=== PATIENT | female | born 1995 | race Caucasian/White ===

== ENCOUNTER 2017-03-23 09:18 | Emergency (ER) | payer BC ==
[2017-03-23 10:10] VITALS: BP 118/86
[2017-03-23] MEDS ORDERED: Ondansetron ODT TAB* 4 MG PO ONE (10:49)
--- NOTE | 2017-03-23 11:02 | UC ---
Leonard Chavez Benjamin, scribed for Lamont Mota MD on 03/23/17 at 1049 . Abdominal Pain Female HPI - HPI Summary HPI Summary: 21yo female c/o vomiting and diarrhea since this morning. Pt felt SOB and lightheaded en route to the UC. Pt also reports stabbing upper abdominal pain since yesterday night. Pt has had about 10 vomiting episodes with green vomit, 6 -8 episodes of dark brown diarrhea, but no black stool. No significant PMHx. Gall bladder still intact. Pt reports that she is currently on her menstrual period. Pain intensity of 3-4 out of 10, but initial intensity was 7 out of 10. - History of Current Complaint Chief Complaint: UCAbdominalPain Stated Complaint: V/D, SOB,LIGHTHEADED Hx Obtained From: Patient Hx Last Menstrual Period: 03/22/17 ?: No Onset/Duration: Sudden Onset, Lasting Days - 1 day, Still Present Severity Initially: Moderate - 7 Severity Currently: Mild - 3 Pain Intensity: 3 Pain Scale Used: 0-10 Numeric Location: Discrete At: RUQ, Discrete At: LUQ Radiates: No Character: Other - stabbing Aggravating Factor(s): Nothing Alleviating Factor(s): Nothing Associated Signs and Symptoms: Positive: Vomiting, Diarrhea Allergies/Adverse Reactions: Allergies Allergy/AdvReac Type Severity Reaction Status Date / Time Sulfa Antibiotics Allergy Rash Verified 04/27/16 21:08 PMH/Surg Hx/FS Hx/Imm Hx Respiratory History Of: Reports: Asthma - Surgical History Surgical History: Yes Surgery Procedure, Year, and Place: T&A - Family History Known Family History: Positive: None Negative: Cardiac Disease - Social History Occupation: Employed Full-time Lives: With Family Alcohol Use: None Substance Use Type: None Smoking Status (MU): Never Smoked Tobacco - Immunization History Most Recent Influenza Vaccination: fall 2014 Most Recent Tetanus Shot: up to date patient thinks Vaccination Up to Date: Yes Review of Systems Constitutional: Negative Respiratory: Shortness Of Breath Cardiovascular: Palpitations, Other - dizziness Gastrointestinal: Abdominal Pain, Vomiting, Diarrhea All Other Systems Reviewed And Are Negative: Yes Physical Exam Triage Information Reviewed: Yes Appearance: No Pain Distress, Well-Nourished Vital Signs: Initial Vital Signs Temp 98.6 F 03/23/17 10:06 Pulse 114 03/23/17 10:06 Resp 18 03/23/17 10:06 BP 118/86 03/23/17 10:06 Pulse Ox 100 03/23/17 10:06 Eyes: Positive: Conjunctiva Clear ENT: Positive: Normal ENT inspection Neck: Positive: Supple Respiratory: Positive: Lungs clear, Normal breath sounds Cardiovascular: Positive: RRR, No Murmur Abdomen Description: Positive: Other: - mild epigastic pain on paplpation Musculoskeletal: Positive: Strength Intact, ROM Intact Neurological: Positive: Alert Psychological: Positive: Age Appropriate Behavior Skin: Negative: rashes Abd Pain Female Course/Dx - Course Course Of Treatment: 21 yr old female with epigastric abdominal pain, NVD, dizziness, sob. She refuses ambulance transport to the ER and signs out AMA. - Differential Dx/Diagnosis Provider Diagnoses: abdominal pain, vomiting, dizzy, sob Discharge - Discharge Plan Condition: Good Disposition: AGAINST MEDICAL ADVICE The documentation as recorded by the Leonard cagle Benjamin accurately reflects the service I personally performed and the decisions made by Svetlana corbett Walter, MD.
== END 2017-03-23 11:03 | disposition left against medical advice (07) ==
LOC: UCEAST 09:18
DX: R10.13 Epigastric pain (principal); R11.10 Vomiting, unspecified; R42 Dizziness and giddiness; R06.02 Shortness of breath; J45.909 Unspecified asthma, uncomplicated; Z88.2 Allergy status to sulfonamides
CPT/HCPCS: 99212; A9270-GY; G0463

== ENCOUNTER 2017-03-23 11:20 | Emergency (ER) | payer BC ==
[2017-03-23] MEDS ORDERED: Ondansetron INJ* 2 MG/ML VIAL IV ONE (12:04)
[2017-03-23] MEDS ORDERED: NS 0.9% 1000 ML* 1,000 ML IV ONE (12:04)
[2017-03-23 12:42] LABS: Hematocrit 46 % (35-47); Hemoglobin 15.3 g/dl (12.0-16.0); Mean Corpuscular HGB Conc 33 g/dl (31-36); Mean Corpuscular Hemoglobin 30 pg (27-31); Mean Corpuscular Volume 90 fL (80-97); Mean Platelet Volume 8 um3 (7.4-10.4); Red Blood Count 5.13 10^6/ul (4.0-5.4); Red Cell Distribution Width 13 % (10.5-15)
[2017-03-23 12:51] LABS: Urine Bacteria Absent (Absent); Urine Bilirubin Negative (Negative); Urine Glucose Negative (Negative); Urine Nitrite Negative (Negative)
[2017-03-23 12:58] LABS: Albumin 4.8 g/dL (3.2-5.2); BUN/Creatinine Ratio 16.1 (8-20); C Reactive Protein 15.12 mg/L (< 5.00); Calcium 9.6 mg/dL (8.6-10.3); EGFR African American 104.7 (>60); EGFR Non-African American 81.4 (>60); Globulin 3.5 g/dL (2-4); Potassium 3.5 mmol/L (3.5-5.0); Total Bilirubin 0.5 mg/dL (0.2-1.0); Total Protein 8.3 g/dL (6.4-8.9)
--- NOTE | 2017-03-23 13:37 | ED ---
Abdominal Pain/Female - History of Current Complaint Chief Complaint: EDNauseaVomitDiarrh Stated Complaint: ABD PAIN,COMING FROM [facility] Time Seen by Provider: 03/23/17 12:05 Hx Last Menstrual Period: 03/22/17 Pain Intensity: 4 Allergies/Adverse Reactions: Allergies Allergy/AdvReac Type Severity Reaction Status Date / Time Sulfa Antibiotics Allergy Rash Verified 04/27/16 21:08 PMH/Surg Hx/FS Hx/Imm Hx Respiratory History: Reports: Hx Asthma - Surgical History Surgery Procedure, Year, and Place: T&A - Immunization History Date of Tetanus Vaccine: UTD Date of Influenza Vaccine: UTD Infectious Disease History: No Infectious Disease History: Denies: Hx Clostridium Difficile, Hx Hepatitis, Hx Human Immunodeficiency Virus (HIV), Hx of Known/Suspected MRSA, Hx Shingles, Hx Tuberculosis, History Other Infectious Disease, Traveled Outside the in Last 30 Days - Family History Known Family History: Positive: None Negative: Cardiac Disease - Social History Alcohol Use: Occasionally Substance Use Type: Reports: None Smoking Status (MU): Never Smoked Tobacco Physical Exam Vital Signs On Initial Exam: Initial Vitals Temp Pulse Resp BP Pulse Ox 97.7 F 111 18 120/75 99 03/23/17 11:29 03/23/17 11:29 03/23/17 11:29 03/23/17 11:29 03/23/17 11:29 - Sun Coma Scale Coma Scale Total: 15 Diagnostics - Vital Signs Vital Signs Temp Pulse Resp BP Pulse Ox 03/23/17 12:15 97.7 F 111 18 120/75 99 03/23/17 11:29 97.7 F 111 18 120/75 99 - Laboratory Lab Results: Lab Results 03/23/17 03/23/17 03/23/17 Range/Units 12:25 12:25 12:25 WBC 15.0 H (3.5-10.8) 10^3/ul RBC 5.13 (4.0-5.4) 10^6/ul Hgb 15.3 (12.0-16.0) g/dl Hct 46 (35-47) % MCV 90 (80-97) fL MCH 30 (27-31) pg MCHC 33 (31-36) g/dl RDW 13 (10.5-15) % Plt Count 344 (150-450) 10^3/ul MPV 8 (7.4-10.4) um3 Neut % (Auto) 92.1 H (38-83) % Lymph % (Auto) 4.0 L (25-47) % Stark % (Auto) 3.4 (1-9) % Eos % (Auto) 0.3 (0-6) % Baso % (Auto) 0.2 (0-2) % Absolute Neuts (auto) 13.8 H (1.5-7.7) 10^3/ul Absolute Lymphs (auto) 0.6 L (1.0-4.8) 10^3/ul Absolute Monos (auto) 0.5 (0-0.8) 10^3/ul Absolute Eos (auto) 0 (0-0.6) 10^3/ul Absolute Basos (auto) 0 (0-0.2) 10^3/ul Absolute Nucleated RBC 0.02 10^3/ul Nucleated RBC % 0.2 Sodium 139 (133-145) mmol/L Potassium 3.5 (3.5-5.0) mmol/L Chloride 103 (101-111) mmol/L Carbon Dioxide 25 (22-32) mmol/L Anion Gap 11 (2-11) mmol/L BUN 14 (6-24) mg/dL Creatinine 0.87 (0.51-0.95) mg/dL Est GFR ( Amer) 104.7 (>60) Est GFR (Non-Af Amer) 81.4 (>60) BUN/Creatinine Ratio 16.1 (8-20) Glucose 105 H (70-100) mg/dL Lactic Acid (0.5-2.0) mmol/L Calcium 9.6 (8.6-10.3) mg/dL Total Bilirubin 0.50 (0.2-1.0) mg/dL AST 17 (13-39) U/L ALT 13 (7-52) U/L Alkaline Phosphatase 43 (34-104) U/L C-Reactive Protein 15.12 H (< 5.00) mg/L Total Protein 8.3 (6.4-8.9) g/dL Albumin 4.8 (3.2-5.2) g/dL Globulin 3.5 (2-4) g/dL Albumin/Globulin Ratio 1.4 (1-3) Lipase 23 (11.0-82.0) U/L Urine Color Yellow Urine Appearance Clear Urine pH 6.0 (5-9) Ur Specific [place] 1.023 (1.010-1.030) Urine Protein Negative (Negative) Urine Ketones Trace H (Negative) Urine Blood 3+ H (Negative) Urine Nitrate Negative (Negative) Urine Bilirubin Negative (Negative) Urine Urobilinogen Negative (Negative) Ur Leukocyte Esterase Trace H (Negative) Urine WBC (Auto) Trace(0-5/hpf) (Absent) Urine RBC (Auto) 1+(3-5/hpf) H (Absent) Ur Squamous Epith Cells Present H (Absent) Urine Bacteria Absent (Absent) Urine Glucose Negative (Negative) 03/23/17 Range/Units 12:25 WBC (3.5-10.8) 10^3/ul RBC (4.0-5.4) 10^6/ul Hgb (12.0-16.0) g/dl Hct (35-47) % MCV (80-97) fL MCH (27-31) pg MCHC (31-36) g/dl RDW (10.5-15) % Plt Count (150-450) 10^3/ul MPV (7.4-10.4) um3 Neut % (Auto) (38-83) % Lymph % (Auto) (25-47) % Stark % (Auto) (1-9) % Eos % (Auto) (0-6) % Baso % (Auto) (0-2) % Absolute Neuts (auto) (1.5-7.7) 10^3/ul Absolute Lymphs (auto) (1.0-4.8) 10^3/ul Absolute Monos (auto) (0-0.8) 10^3/ul Absolute Eos (auto) (0-0.6) 10^3/ul Absolute Basos (auto) (0-0.2) 10^3/ul Absolute Nucleated RBC 10^3/ul Nucleated RBC % Sodium (133-145) mmol/L Potassium (3.5-5.0) mmol/L Chloride (101-111) mmol/L Carbon Dioxide (22-32) mmol/L Anion Gap (2-11) mmol/L BUN (6-24) mg/dL Creatinine (0.51-0.95) mg/dL Est GFR ( Amer) (>60) Est GFR (Non-Af Amer) (>60) BUN/Creatinine Ratio (8-20) Glucose (70-100) mg/dL Lactic Acid 1.4 (0.5-2.0) mmol/L Calcium (8.6-10.3) mg/dL Total Bilirubin (0.2-1.0) mg/dL AST (13-39) U/L ALT (7-52) U/L Alkaline Phosphatase (34-104) U/L C-Reactive Protein (< 5.00) mg/L Total Protein (6.4-8.9) g/dL Albumin (3.2-5.2) g/dL Globulin (2-4) g/dL Albumin/Globulin Ratio (1-3) Lipase (11.0-82.0) U/L Urine Color Urine Appearance Urine pH (5-9) Ur Specific [place] (1.010-1.030) Urine Protein (Negative) Urine Ketones (Negative) Urine Blood (Negative) Urine Nitrate (Negative) Urine Bilirubin (Negative) Urine Urobilinogen (Negative) Ur Leukocyte Esterase (Negative) Urine WBC (Auto) (Absent) Urine RBC (Auto) (Absent) Ur Squamous Epith Cells (Absent) Urine Bacteria (Absent) Urine Glucose (Negative) Result Diagrams: 03/23/17 12:25 03/23/17 12:25 Lab Statement: Any lab studies that have been ordered have been reviewed, and results considered in the medical decision making process. Abdominal Pain Fem Course/Dx - Diagnoses Provider Diagnoses: Viral gastroenteritis Discharge - Discharge Plan Condition: Stable Disposition: HOME Patient Education Materials: Acute Nausea and Vomiting (ED), Gastroenteritis ( ED) Referrals: Ramses Quijano DO [Primary Care Provider] - Additional Instructions: Take prescribed zofran as needed for nausea/vomiting as directed. Continue Ibuprofen/Tylenol for pain and discomfort. Drink plenty of fluids to avoid dehydration and get plenty of rest. Try eating bland foods such as bread, rice, toast and applesauce to help with diarrhea. Refrain from taking OTC medication for diarrhea unless it persists over the next 48 hours. If you develop new or worsening symptoms such as profuse vomiting, dehydration, fever/chills or abdominal pain please seek medical attention promptly. Follow up with your PCP.
[2017-03-23] MEDS ORDERED: Ibuprofen TAB* 800 MG PO ONE (14:09)
[2017-03-23 14:40] VITALS: BP 122/68
== END 2017-03-23 14:40 | disposition home or self-care (01) ==
LOC: ED 11:20
DX: A08.4 Viral intestinal infection, unspecified (principal); J45.909 Unspecified asthma, uncomplicated
CPT/HCPCS: 36415; 80053; 81003; 81015; 83605; 83690; 85025; 86140; 87086; A9270-GY; J2405

== ENCOUNTER 2017-04-25 20:46 | Emergency (ER) | payer BC ==
[2017-04-25 20:53] VITALS: BP 120/69
--- NOTE | 2017-04-25 21:06 | UC ---
UC General HPI - HPI Summary HPI Summary: complaint of pain in left armpit that started today achy non radiating pain- nothing makes pain better or worse slightly sore throat dx with mono today with PCP at [facility] today took some acetaminophen this morning with relief denies fever and chills - History of Current Complaint Chief Complaint: UCRespiratory Stated Complaint: PAINFUL ARMPIT AREA-MONO DX RECENTLY Time Seen by Provider: 04/25/17 20:58 Hx Obtained From: Patient - Allergy/Home Medications Allergies/Adverse Reactions: Allergies Allergy/AdvReac Type Severity Reaction Status Date / Time Sulfa Antibiotics Allergy Rash Verified 04/25/17 20:53 PMH/Surg Hx/FS Hx/Imm Hx Previously Healthy: No - mononucleosis - Surgical History Surgical History: Yes Surgery Procedure, Year, and Place: T&A - Family History Known Family History: Positive: None Negative: Cardiac Disease, Hypertension, Diabetes - Social History Occupation: Employed Full-time Lives: With Family Alcohol Use: Occasionally Substance Use Type: None Smoking Status (MU): Never Smoked Tobacco - Immunization History Most Recent Influenza Vaccination: fall 2014 Most Recent Tetanus Shot: up to date patient thinks Vaccination Up to Date: Yes Review of Systems Constitutional: Fatigue Skin: Negative Eyes: Negative ENT: Sore Throat Respiratory: Negative Cardiovascular: Negative Gastrointestinal: Negative Genitourinary: Negative Motor: Negative Neurovascular: Negative Musculoskeletal: Other: - left axilla pain Neurological: Negative Psychological: Negative All Other Systems Reviewed And Are Negative: Yes Physical Exam Triage Information Reviewed: Yes Appearance: No Pain Distress, Well-Nourished Vital Signs: Initial Vital Signs Temp 98.7 F 04/25/17 20:52 Pulse 110 04/25/17 20:52 Resp 16 04/25/17 20:52 BP 120/69 04/25/17 20:52 Pulse Ox 99 04/25/17 20:52 Vital Signs Reviewed: Yes Eyes: Positive: Conjunctiva Clear ENT: Positive: Pharyngeal erythema, TMs normal. Negative: Nasal congestion, Nasal drainage, Tonsillar swelling, Tonsillar exudate Dental: Positive: Cervical Lymphadenopathy Neck: Positive: Supple Respiratory: Positive: Lungs clear, Normal breath sounds, No respiratory distress Cardiovascular: Positive: RRR, No Murmur, Pulses Normal Abdomen Description: Positive: Nontender, Soft Bowel Sounds: Positive: Present Musculoskeletal: Positive: No Edema Neurological: Positive: Alert Psychological Exam: Normal Skin: Positive: Other - left axilla- lymph nodes enlarged and tender Course/Dx - Course Course Of Treatment: exam completed. swollen lymph nodes in axilla- secondary to mononucleosis. reassurance given followup with PCP - Differential Dx - Multi-Symptom Provider Diagnoses: lymphadenopathy, mononucleosis Discharge - Discharge Plan Condition: Stable Disposition: HOME Patient Education Materials: Mononucleosis (ED), Lymphadenopathy (ED) Referrals: Ramses Quijano DO [Primary Care Provider] - Additional Instructions: Increase fluids and rest Take acetaminophen or ibuprofen for fever or pain Please review your discharge instructions. If your symptoms do not improve please call your primary care provider or return to urgent care.
== END 2017-04-25 21:20 | disposition home or self-care (01) ==
LOC: UCEAST 20:46
DX: R59.9 Enlarged lymph nodes, unspecified (principal); B27.90 Infectious mononucleosis, unspecified without complication
CPT/HCPCS: 99211; G0463

== ENCOUNTER 2018-01-07 17:17 | Emergency (ER) | payer BC ==
[2018-01-07 18:20] VITALS: BP 116/74
--- NOTE | 2018-01-07 18:32 | UC ---
Complaint Female HPI - HPI Summary HPI Summary: Pt presents with urinary frequency and burning with urination since this morning. She has had UTIs in the past and this feels similar. Has not taken anything OTC. Denies fever, chills, flank pain, hematuria, vaginal pain/ discharge/bleeding, or pelvic pain. She does not want STD testing. - History Of Current Complaint Chief Complaint: UCGU Stated Complaint: URINARY FREQUENCY Time Seen by Provider: 01/07/18 18:31 Hx Obtained From: Patient Hx Last Menstrual Period: 12/27/17 Onset/Duration: Sudden Onset Timing: Constant Severity Initially: Mild Severity Currently: Mild Pain Intensity: 2 Pain Scale Used: 0-10 Numeric Character: Burning - Allergies/Home Medications Allergies/Adverse Reactions: Allergies Allergy/AdvReac Type Severity Reaction Status Date / Time Sulfa (Sulfonamide Allergy Rash Verified 01/07/18 18:20 Antibiotics) PMH/Surg Hx/FS Hx/Imm Hx Previously Healthy: Yes Respiratory History: Asthma - Surgical History Surgical History: Yes Surgery Procedure, Year, and Place: T&A - Family History Known Family History: Positive: None Negative: Cardiac Disease, Hypertension, Diabetes - Social History Occupation: Employed Full-time Lives: Alone Alcohol Use: Occasionally Substance Use Type: None Smoking Status (MU): Never Smoked Tobacco - Immunization History Most Recent Influenza Vaccination: fall 2014 Most Recent Tetanus Shot: up to date patient thinks Vaccination Up to Date: Yes Review of Systems Constitutional: Negative Skin: Negative Respiratory: Negative Cardiovascular: Negative Gastrointestinal: Negative Genitourinary: Dysuria, Frequency Neurological: Negative Psychological: Negative All Other Systems Reviewed And Are Negative: Yes Physical Exam Triage Information Reviewed: Yes Appearance: Well-Appearing, No Pain Distress, Well-Nourished Vital Signs: Initial Vital Signs Temp 98.2 F 01/07/18 18:17 Pulse 97 01/07/18 18:17 Resp 18 01/07/18 18:17 BP 116/74 01/07/18 18:17 Pulse Ox 100 01/07/18 18:17 Vital Signs Reviewed: Yes Neck: Positive: Supple, Nontender, No Lymphadenopathy Respiratory: Positive: Lungs clear, Normal breath sounds, No respiratory distress, No accessory muscle use Cardiovascular: Positive: RRR, No Murmur, Pulses Normal Abdomen Description: Positive: Nontender, No Organomegaly, Soft. Negative: CVA Tenderness (R), CVA Tenderness (L), Distended, Guarding Bowel Sounds: Positive: Present Neurological: Positive: Alert Psychological: Positive: Age Appropriate Behavior Skin: Negative: rashes Complaint Female Dx - Course Course Of Treatment: POC with 2+ blood and 1+ leuks. Given her allergy to Bactrim, will treat with Keflex and await cultures. - Differential Dx/Diagnosis Provider Diagnoses: UTI Discharge - Discharge Plan Condition: Stable Disposition: HOME Prescriptions: Cephalexin CAP* [Keflex CAP*] 500 mg PO BID #14 cap Patient Education Materials: Urinary Tract Infection in Women (ED) Referrals: Ramses Quijano DO [Primary Care Provider] - Additional Instructions: If you develop a fever, shortness of breath, chest pain, new or worsening symptoms - please call your PCP or go to the ED.
[2018-01-07] MEDS ORDERED: Cephalexin CAP* 500 MG PO ONE (18:59)
== END 2018-01-07 19:35 | disposition home or self-care (01) ==
LOC: UCEAST 17:17
DX: N39.0 Urinary tract infection, site not specified (principal)
CPT/HCPCS: 81003; 87086; 99212; A9270-GY; G0463

== ENCOUNTER 2018-03-03 19:35 | Emergency (ER) | payer BC ==
[2018-03-03 20:17] VITALS: BP 113/74
[2018-03-03] MEDS ORDERED: Amoxicillin/Clavulanate TAB* 875 MG PO ONE (20:23)
--- NOTE | 2018-03-03 20:28 | UC ---
Throat Pain/Nasal Jazzy HPI - HPI Summary HPI Summary: patient started with nasal congestion and fatigue [address] 3 days later and went to PCP, strep neg. was told to take OTc's. dayQuil not helping. now has had inc fatigue, facial pressure and nasal jazzy. and occasional cough. she is blowing out dk yellow secretions. - History of Current Complaint Chief Complaint: UCGeneralIllness Stated Complaint: EAR PAIN,ST,EYE IRRITATION Time Seen by Provider: 03/03/18 20:16 Hx Obtained From: Patient Hx Last Menstrual Period: 02/14/18 ?: No Onset/Duration: Gradual Onset Severity: Moderate Pain Intensity: 8 Cough: Nonproductive Associated Signs & Symptoms: Positive: Sinus Discomfort, Nasal Discharge, Fever Related History: Seasonal Allergies - Allergies/Home Medications Allergies/Adverse Reactions: Allergies Allergy/AdvReac Type Severity Reaction Status Date / Time Sulfa (Sulfonamide Allergy Rash Verified 03/03/18 20:18 Antibiotics) PMH/Surg Hx/FS Hx/Imm Hx Previously Healthy: Yes Respiratory History: Asthma - Surgical History Surgical History: Yes Surgery Procedure, Year, and Place: T&A - Family History Known Family History: Positive: None Negative: Cardiac Disease, Hypertension, Diabetes - Social History Occupation: Employed Full-time Lives: With Family Alcohol Use: Occasionally Substance Use Type: None Smoking Status (MU): Never Smoked Tobacco - Immunization History Most Recent Influenza Vaccination: fall 2014 Most Recent Tetanus Shot: up to date patient thinks Vaccination Up to Date: Yes Review of Systems Constitutional: Fever, Fatigue Skin: Negative Eyes: Eye Redness - R eye started yesterday, worse today and itchy ENT: Sore Throat, Ear Ache, Sinus Congestion, Sinus Pain/Tenderness Respiratory: Cough Cardiovascular: Negative Neurological: Negative Psychological: Negative Is Patient Immunocompromised?: No All Other Systems Reviewed And Are Negative: Yes Physical Exam Triage Information Reviewed: Yes Appearance: Well-Appearing, No Pain Distress, Well-Nourished Vital Signs: Initial Vital Signs Temp 97.5 F 03/03/18 20:11 Pulse 89 03/03/18 20:11 Resp 16 03/03/18 20:11 BP 113/74 03/03/18 20:11 Pulse Ox 99 03/03/18 20:11 Vital Signs Reviewed: Yes Eyes: Positive: Conjunctiva Inflamed - R eye ENT: Positive: Pharynx normal, Nasal congestion, TMs normal, Sinus tenderness Respiratory Exam: Normal Respiratory: Positive: Lungs clear Cardiovascular Exam: Normal Cardiovascular: Positive: RRR Neurological Exam: Normal Psychological Exam: Normal Skin Exam: Normal Throat Pain/Nasal Course/Dx - Differential Dx/Diagnosis Differential Diagnosis/HQI/PQRI: Influenza, Pharyngitis, Sinusitis, Tonsillitis , URI Provider Diagnoses: sinusitis Discharge - Sign-Out/Discharge Documenting (check all that apply): Discharge - Discharge Plan Condition: Good Disposition: HOME Prescriptions: Amoxicillin/Clavulanate TAB* [Augmentin TAB 875*] 875 mg PO BID #19 tab Patient Education Materials: Sinusitis (ED) Referrals: Ramses Quijano DO [Primary Care Provider] - 3 Days (if not improving) Additional Instructions: drink plenty of fluids use antibiotic as prescribed use DayQuil/NyQuil as directed for symptom relief - Billing Disposition and Condition Condition: GOOD Disposition: HOME
== END 2018-03-03 20:30 | disposition home or self-care (01) ==
LOC: UCEAST 19:35
DX: J32.9 Chronic sinusitis, unspecified (principal); J45.909 Unspecified asthma, uncomplicated; Z88.2 Allergy status to sulfonamides
CPT/HCPCS: 99212; A9270-GY; G0463

== ENCOUNTER 2018-10-19 05:05 | Emergency (ER) | payer BC ==
[2018-10-19] MEDS ORDERED: NS 0.9% 1000 ML* 1,000 ML IV ONE (05:39)
[2018-10-19 06:15] LABS: ABS Basophils 0 10^3/ul (0-0.2); ABS Eosinophils 0 10^3/ul (0-0.6); ABS Lymphocytes 1.5 10^3/ul (1.0-4.8); ABS Monocytes 0.6 10^3/ul (0-0.8); ABS Neutrophils 12.7 10^3/ul (1.5-7.7); ABS Nucleated RBC 0 10^3/ul; Eosinophil % 0.3 %; Hematocrit 37 % (35-47); Hemoglobin 12.6 g/dl (12.0-16.0); Lymphocyte % 9.9 %; Mean Corpuscular HGB Conc 34 g/dl (31-36); Mean Corpuscular Hemoglobin 30 pg (27-31); Mean Corpuscular Volume 90 fL (80-97); Mean Platelet Volume 7.4 fL (7.4-10.4); Nucleated Red Blood Cells % 0; Platelet Count 317 10^3/ul (150-450); Red Blood Count 4.16 10^6/ul (4.00-5.40); Red Cell Distribution Width 12 % (10.5-15); White Blood Count 14.9 10^3/ul (3.5-10.8)
[2018-10-19 06:24] LABS: INR 1.06 (0.77-1.02)
[2018-10-19 06:36] LABS: EGFR Non-African American 79.6 (>60)
[2018-10-19 06:38] LABS: Urine Appearance Clear; Urine Blood 1+ (Negative); Urine Color Straw; Urine Ketones Negative (Negative); Urine Protein Negative (Negative); Urine Red Blood Cell Trace(0-2/hpf) (Absent); Urine Specific Gravity 1.006 (1.010-1.030); Urine Urobilinogen Negative (Negative); Urine White Blood Cell Trace(0-5/hpf) (Absent)
--- NOTE | 2018-10-19 07:10 | ED ---
Abdominal Pain/Female - HPI Summary HPI Summary: Patient presents with abdominal pain that started last night at about 22:30. She reports this as diffuse upper abdominal pain that felt like "constipation". She describes this as bloating and discomfort with mild nausea. Feels RUQ is slightly worse than LUQ and has had occasional radiation to Rt/mid back. Took anti-nausea medication like zofran which helped. After standing for about 10 minutes last night, she felt lightheaded so went to the bathroom to try to move her bowels. She was only able to move a small amount of soft stool and had no relief of her abdominal pain. This happened one other time where she repeated these actions. Noticed scant amount of blood in her underwear but no sulma bleeding from vagina or rectum that she has identified (NOTE: had routine pelvic w/ pap yesterday - no concerns for dz or infection and denies irritation , itching, pelvic pain). Menstrual cycle has been normal and no h/o STD's, issues. LMP 2 weeks ago - has unprotected intercourse with partner but has not been able to get in the past so had an U/S about 1 year ago - no pathology identified per pt. No previous ab surgeries. Denies fever, chills, headache, URI symptoms, chest pain, difficulty breathing or back pain. Recently recovered from URI but no anbx were rx'd or taken. Additionally she reports she's been urinating frequently but she also admits she 's been drinking lots of fluids and to started an effort to flush her stool through. She reports eating beef jerky with chips at 1930 last night and a granola bar at 2300. She's not had anything to eat since. Eating did not make her pain worse. H/o constipation once when she had mono - has not had prior or since. - History of Current Complaint Chief Complaint: Phoebe Stated Complaint: ABD PAIN/CONSTIPATION/NAUSEA Time Seen by Provider: 10/19/18 05:37 Hx Obtained From: Patient Hx Last Menstrual Period: 02/14/18 Pain Intensity: 8 Allergies/Adverse Reactions: Allergies Allergy/AdvReac Type Severity Reaction Status Date / Time Sulfa (Sulfonamide Allergy Rash Verified 03/03/18 20:18 Antibiotics) PMH/Surg Hx/FS Hx/Imm Hx Previously Healthy: Yes Endocrine/Hematology History: Denies: Hx Anticoagulant Therapy, Hx Blood Disorders, Hx Diabetes, Hx Thyroid Disease, Hx Anemia, Hx Unexplained Bleeding, Autoimmune Disease Cardiovascular History: Denies: Hx Hypertension Respiratory History: Reports: Hx Asthma GI History: Denies: Hx Cirrhosis, Hx Crohn's Disease, Hx Diverticulosis, Hx Gall Bladder Disease, Hx Gastroesophageal Reflux Disease, Hx Gastrointestinal Bleed, Hx Hiatal Hernia, Hx Irritable Bowel History: Denies: Hx Kidney Infection, Hx Kidney Stones Sensory History: Reports: Hx Contacts or Glasses Opthamlomology History: Reports: Hx Contacts or Glasses - Surgical History Surgery Procedure, Year, and Place: T&A - Immunization History Date of Tetanus Vaccine: UTD Date of Influenza Vaccine: UTD Infectious Disease History: No Infectious Disease History: Denies: Hx Clostridium Difficile, Hx Hepatitis, Hx Human Immunodeficiency Virus (HIV), Hx of Known/Suspected MRSA, Hx Shingles, Hx Tuberculosis, History Other Infectious Disease, Traveled Outside the in Last 30 Days - Family History Known Family History: Positive: None Negative: Cardiac Disease, Hypertension, Diabetes - Social History Occupation: Employed Full-time - [employer] Lives: With Family - boyfriend Alcohol Use: Occasionally Hx Substance Use: No Substance Use Type: Reports: None Hx Tobacco Use: No Smoking Status (MU): Never Smoked Tobacco Review of Systems Constitutional: Negative Negative: Fever, Chills Eyes: Negative ENT: Negative Cardiovascular: Negative Respiratory: Negative Positive: Abdominal Pain, Nausea. Negative: Vomiting, Diarrhea Positive: see HPI Musculoskeletal: Negative Skin: Negative Neurological: Negative Psychological: Normal All Other Systems Reviewed And Are Negative: Yes Physical Exam Triage Information Reviewed: Yes Vital Signs On Initial Exam: Initial Vitals Temp Pulse Resp BP Pulse Ox 98.2 F 103 20 110/67 98 10/19/18 05:09 10/19/18 05:09 10/19/18 05:09 10/19/18 05:09 10/19/18 05:09 Vital Signs Reviewed: Yes Appearance: Positive: Well-Appearing - lying comfortably on stretcher, watching TV, No Pain Distress, Obese Skin: Positive: Warm, Skin Color Reflects Adequate Perfusion, Dry Head/Face: Positive: Normal Head/Face Inspection Eyes: Positive: Normal, EOMI, Conjunctiva Clear - anicteric sclera ENT: Positive: Normal ENT inspection, Hearing grossly normal, Pharynx normal - mucosa moist Neck: Positive: Supple, Nontender Respiratory/Lung Sounds: Positive: Clear to Auscultation, Breath Sounds Present. Negative: Rales, Rhonchi, Wheezes Cardiovascular: Positive: Normal, RRR, S1, S2 Abdomen Description: Positive: No Organomegaly, Soft, Other: - LLQ and suprapubic w/ mild TTP - no rebounding. Negative: CVA Tenderness (R), CVA Tenderness (L), Distended, Guarding, Hernia @, McBurney's Point Tenderness, Peritoneal Signs Bowel Sounds: Positive: Present Pelvic Exam: Positive: External Exam Normal, No Cerv. Motion Tender, Discharge - watery, yellow/brown mucous, Tender Adnexa - possibly Lt and uterus - pt unsure if it hurts or is worsening urge to urinate; Rt adnexa NTTP. Negative: Blood, Cervicitis, Lesions Musculoskeletal: Positive: Normal, Strength/ROM Intact Neurological: Positive: Normal, Sensory/Motor Intact, Alert, Oriented to Person Place, Time, CN Intact II-III Psychiatric: Positive: Normal Diagnostics - Vital Signs Vital Signs Temp Pulse Resp BP Pulse Ox 10/19/18 05:30 95 99 10/19/18 05:29 97 121/72 100 10/19/18 05:09 98.2 F 103 20 110/67 98 - Laboratory Lab Results: Lab Results 10/19/18 10/19/18 10/19/18 Range/Units 06:05 06:05 06:05 WBC 14.9 H (3.5-10.8) 10^3/ul RBC 4.16 (4.00-5.40) 10^6/ul Hgb 12.6 (12.0-16.0) g/dl Hct 37 (35-47) % MCV 90 (80-97) fL MCH 30 (27-31) pg MCHC 34 (31-36) g/dl RDW 12 (10.5-15) % Plt Count 317 (150-450) 10^3/ul MPV 7.4 (7.4-10.4) fL Neut % (Auto) 85.2 % Lymph % (Auto) 9.9 % Rock % (Auto) 4.4 % Eos % (Auto) 0.3 % Baso % (Auto) 0.2 % Absolute Neuts (auto) 12.7 H (1.5-7.7) 10^3/ul Absolute Lymphs (auto) 1.5 (1.0-4.8) 10^3/ul Absolute Monos (auto) 0.6 (0-0.8) 10^3/ul Absolute Eos (auto) 0 (0-0.6) 10^3/ul Absolute Basos (auto) 0 (0-0.2) 10^3/ul Absolute Nucleated RBC 0 10^3/ul Nucleated RBC % 0 INR (Anticoag Therapy) 1.06 H (0.77-1.02) APTT 35.2 (26.0-36.3) seconds Sodium 137 (135-145) mmol/L Potassium 3.6 (3.5-5.0) mmol/L Chloride 103 (101-111) mmol/L Carbon Dioxide 27 (22-32) mmol/L Anion Gap 7 (2-11) mmol/L BUN 11 (6-24) mg/dL Creatinine 0.88 (0.51-0.95) mg/dL Est GFR ( Amer) 96.4 (>60) Est GFR (Non-Af Amer) 79.6 (>60) BUN/Creatinine Ratio 12.5 (8-20) Glucose 117 H (70-100) mg/dL Lactic Acid (0.5-2.0) mmol/L Calcium 9.3 (8.6-10.3) mg/dL Magnesium 1.9 (1.9-2.7) mg/dL Total Bilirubin 0.60 (0.2-1.0) mg/dL AST 14 (13-39) U/L ALT 10 (7-52) U/L Alkaline Phosphatase 44 (34-104) U/L C-Reactive Protein 15.13 H (<8.01) mg/L Total Protein 7.3 (6.4-8.9) g/dL Albumin 4.6 (3.2-5.2) g/dL Globulin 2.7 (2-4) g/dL Albumin/Globulin Ratio 1.7 (1-3) Lipase 17 (11.0-82.0) U/L Beta HCG, Quant 5.34 mIU/mL Urine Color Urine Appearance Urine pH (5-9) Ur Specific Duncan (1.010-1.030) Urine Protein (Negative) Urine Ketones (Negative) Urine Blood (Negative) Urine Nitrate (Negative) Urine Bilirubin (Negative) Urine Urobilinogen (Negative) Ur Leukocyte Esterase (Negative) Urine WBC (Auto) (Absent) Urine RBC (Auto) (Absent) Ur Squamous Epith Cells (Absent) Urine Bacteria (Absent) Urine Glucose (Negative) 10/19/18 10/19/18 Range/Units 06:05 06:29 WBC (3.5-10.8) 10^3/ul RBC (4.00-5.40) 10^6/ul Hgb (12.0-16.0) g/dl Hct (35-47) % MCV (80-97) fL MCH (27-31) pg MCHC (31-36) g/dl RDW (10.5-15) % Plt Count (150-450) 10^3/ul MPV (7.4-10.4) fL Neut % (Auto) % Lymph % (Auto) % Rock % (Auto) % Eos % (Auto) % Baso % (Auto) % Absolute Neuts (auto) (1.5-7.7) 10^3/ul Absolute Lymphs (auto) (1.0-4.8) 10^3/ul Absolute Monos (auto) (0-0.8) 10^3/ul Absolute Eos (auto) (0-0.6) 10^3/ul Absolute Basos (auto) (0-0.2) 10^3/ul Absolute Nucleated RBC 10^3/ul Nucleated RBC % INR (Anticoag Therapy) (0.77-1.02) APTT (26.0-36.3) seconds Sodium (135-145) mmol/L Potassium (3.5-5.0) mmol/L Chloride (101-111) mmol/L Carbon Dioxide (22-32) mmol/L Anion Gap (2-11) mmol/L BUN (6-24) mg/dL Creatinine (0.51-0.95) mg/dL Est GFR ( Amer) (>60) Est GFR (Non-Af Amer) (>60) BUN/Creatinine Ratio (8-20) Glucose (70-100) mg/dL Lactic Acid 0.4 L (0.5-2.0) mmol/L Calcium (8.6-10.3) mg/dL Magnesium (1.9-2.7) mg/dL Total Bilirubin (0.2-1.0) mg/dL AST (13-39) U/L ALT (7-52) U/L Alkaline Phosphatase (34-104) U/L C-Reactive Protein (<8.01) mg/L Total Protein (6.4-8.9) g/dL Albumin (3.2-5.2) g/dL Globulin (2-4) g/dL Albumin/Globulin Ratio (1-3) Lipase (11.0-82.0) U/L Beta HCG, Quant mIU/mL Urine Color Straw Urine Appearance Clear Urine pH 7.0 (5-9) Ur Specific Duncan 1.006 L (1.010-1.030) Urine Protein Negative (Negative) Urine Ketones Negative (Negative) Urine Blood 1+ A (Negative) Urine Nitrate Negative (Negative) Urine Bilirubin Negative (Negative) Urine Urobilinogen Negative (Negative) Ur Leukocyte Esterase Negative (Negative) Urine WBC (Auto) Trace(0-5/hpf) (Absent) Urine RBC (Auto) Trace(0-2/hpf) (Absent) Ur Squamous Epith Cells Present A (Absent) Urine Bacteria Absent (Absent) Urine Glucose Negative (Negative) Result Diagrams: 10/19/18 06:05 10/19/18 06:05 Lab Statement: Any lab studies that have been ordered have been reviewed, and results considered in the medical decision making process. Abdominal Pain Fem Course/Dx - Diagnoses Provider Diagnoses: Possible , not confirmed, LLQ abdominal pain Discharge - Sign-Out/Discharge Documenting (check all that apply): Patient Departure - Discharge Plan Condition: Stable Disposition: HOME Referrals: Ramses Quijano DO [Primary Care Provider] - Additional Instructions: The definitive cause of your left lower quadrant pain was not identified today however there is concern that you may have an early . This may be intrauterine and viable or may be ectopic and not viable. In an effort to follow this potential condition, it is important that you have a repeat of your test in 48 hours and possibly a repeat ultrasound. Call your PCP today for testing - If you do not have outpatient services that are able to order these tests for you, return to the emergency department for testing Monday. * If in the meantime you develop worsening of pain with vaginal bleeding, cramping, fever, chills, vomiting, contractions of your lower abdomen and pelvis , return to the emergency department. In the event that you do have a viable intrauterine , it is advised that you avoid all tobacco, alcohol and illicit drugs as well as over-the- counter drugs except for acetaminophen. You may start a vitamin and follow general guidelines for such as avoiding raw foods, harsh chemicals, etc. - Billing Disposition and Condition Condition: STABLE Disposition: Home
--- OUTSIDE RECORDS SUMMARY | 2018-10-19 08:20 | XMS REPORT | Continuity of Care Document ---
:1995 External Reference #:[id number] Author Name Giselle Dawn Care Team Providers Name Role Phone Ramses Quijano MD Primary Care Physician Unavailable Payers Type Date Identification Numbers Payment Provider Subscriber Policy Number: [id number] [place] BC/BS [facility] Karo Walker PayID: [id number] [address] [address] [place] [address] Advance Directives Description No Information Available Problems Description No Information Family History Date Family Member(s) Problem(s) Comments Father A&W Mother Migraine Mother Endometriosis Children None Siblings 3 Siblings Second of four children First Brother A&W First Sister A&W Second Sister A&W Paternal Grandfather A&W Paternal Grandmother Multiple Sclerosis (MS) Maternal Grandfather due to Heart Disease () Maternal Grandmother A&W Social History Type Date Description Comments Sex Unknown Education Highest level completed, 12th grade Marital Status Single Lives With Male Partner Lives With Roommate Sleep Typically sleeps 7 hours a night Tobacco Use Start: Unknown Home is not smoke-free Pets 1 cat Pets 1 dog Occupation Home Health Aide Tobacco Use Start: Unknown Never Smoked Cigarettes ETOH Use Occasionally consumes approx 1 glass wine alcohol q month Recreational Drug Use Denies Drug Use Tobacco Use Start: Unknown Patient has never smoked Smoking Status Reviewed: 10/17/18 Patient has never smoked Exercise Type/Frequency Exercises sporadically Seat Belt/Car Seat Always uses seat belt Currently Active Patient is currently sexually active Contraceptive Methods None Allergies, Adverse Reactions, Alerts Date Description Reaction Status Severity Comments 08/25/2017 Sulfa Active Medications Description No Active Medications Immunizations Description No Information Available Vital Signs Date Vital Result Comment 10/17/2018 8:32am BP Systolic 130 mmHg BP Diastolic 86 mmHg Height 63 inches 5'3" Weight 171.00 lb BMI (Body Mass Index) 30.3 kg/m2 Last Menstrual Period 5036015 0 Parity 0 03/07/2018 10:18am BP Systolic 106 mmHg BP Diastolic 68 mmHg Height 63 inches 5'3" Weight 160.00 lb BMI (Body Mass Index) 28.3 kg/m2 Last Menstrual Period [id number] 0 Parity 0 10/06/2017 1:44pm BP Systolic 120 mmHg BP Diastolic 80 mmHg Height 63 inches 5'3" Weight 168.00 lb BMI (Body Mass Index) 29.8 kg/m2 Last Menstrual Period 8512002 0 Parity 0 08/25/2017 8:16am BP Systolic 116 mmHg BP Diastolic 72 mmHg Height 63 inches 5'3" Weight 169.00 lb BMI (Body Mass Index) 29.9 kg/m2 Last Menstrual Period [id number] 0 Results Test Date Facility Test Result H/L Range Note Laboratory test [facility] Gardnerella/Yeas SEE RESULT 1 [address] [place] [address] t: Vaginal Dna BELOW [phone] GC/Chlamydia Dna [facility] Chlamydia Negative Negative Probe [address] [place] [address] trachomatis Rna [phone] Neisseria gonorrhoeae (GC) Rna Negative Negative Laboratory test 10/06/2017 [facility] HCG < 0.60 mIU/ mL [address] [place] [address] [phone] Prolactin 10.2 ng/mL 1.0-25.0 3 TSH 2.25 mcIU/mL 0.34-5.60 4 T4 Free 0.98 ng/dL 0.61-1.12 5 Laboratory test 08/25/2017 [facility] Cytology SEE RESULT [address] [place] [address] BELOW [phone] GC/Chlamydia 08/25/2017 [facility] Chlamydia Negative [place] [address] trachomatis Rna [phone] Neisseria gonorrhoeae (GC) Rna Negative Negative Laboratory test 08/25/2017 [facility] Human Papilloma POSITIVE Negative [address] [place] [address] Virus Rna [phone] 1 SEE RESULT BELOW Name: DELVIN WALKER : [address]: Madelyn Goodman [facility] Acct: [id number] Unit: [id number] AGE: 22 Location: [facility] Re03/07/18 SEX: F Status: REG REF SPEC: [id number] ELEANOR: 03/07/18-[address]: Madelyn Goodman [facility] REQ: [id number] RECD: 03/07/188 STATUS: COMP _ SOURCE: VAGINAL SPDESC: ORDERED: Keily,Yeast DNA COMMENTS: [id number] Would you like to order Trichomonas Vaginalis RNA testing? N Procedure Result Reported Site Gardnerella/Yeast: Vaginal DNA Final 03/08/18- 1238 ML Organism 1 Negative Shruti Organism 2 Negative Gardnerella The presence of G. vaginalis, although suggestive, is not diagnostic for bacterial vaginosis. Results should be interpreted in conjuction with other clinical and laboratory data available. Women with vaginal discharge should be evaluated for risk factors of cervicitis and pelvic inflammatory disease, toxic shock syndrome (S.aureus), and if present, evaluated for organisms not included in this assay such as N. gonorrhoeae, C. trachomatis, Mobiluncus, Mycoplasma and/or Prevotella. Mixed infections may occur. The performance of this test on patient specimens collected during or immediately after antimicrobial therapy is unknown. The presence or absence of Shruti species, or G. vaginalis cannot be used as a test for therapeutic success or failure. * ML - Main Lab . END OF REPORT DEPARTMENT OF PATHOLOGY, [address] [place] [address] Handy Verma M.D. Director [facility] # [id number] 2 <5.0 Negative 5.0 - 25.0 Indeterminate (Repeat testing recommended after 72 hours) >25.0 Positive Perimenopausal women can display HCG levels of up to 20 mIU/mL 3 [id number] 4 [id number] 5 [id number] 6 SEE RESULT BELOW Name: DELVIN WALKER : [address]: Alexander Fontanez MD Acct: [id number] Unit: [id number] AGE: 21 Location: [facility] Re08/25/17 SEX: F Status: REG REF SPEC: [id number] ELEANOR: 08/25/[address]: Alexander Fontanez MD REQ: [id number] RECD: 08/25/17 STATUS: SOUT _ ORDERED: TP IMAGE ANAL, SENIOR COURTROOM CLERK PHYS INTERP, HPV/Thin Prep COMMENTS: [id number] FINAL DIAGNOSIS EPITHELIAL CELL ABNORMALITIES Low grade squamous intraepithelial lesion (LSIL) A. Ectocervical/Endocervical Specimen Adequacy: Satisfactory of evaluation Transformation zone component identified Patient Information: HPV: High risk HPV RNA testing regardless of pap results. Actual Specimen Date: 08/25/17 Last Menstrual Date: 08/03/17 Spec Date if unknown: elsewhere Previous Abnormal Pap Smears?:Y If Yes, enter Diagnosis: History of low grade squamous intraepithelial lesion Date Time Test Result Flag (u) Normal Range 08/25/17 0906 HPV RNA POSITIVE H Negative The high-risk HPV types detected by the assay include: 16, 18, 31, 33, 35, 39, 45, 51, 52, 56, 58, 59, 66, and 68. Signed (signature on file) Handy Verma MD 1620 This Pap test was evaluated with the assistance of the [employer] Private Test Imaging System. Due to cytologic findings at the lbd teacher microscope, comprehensive manual rescreening by a Globe Mounter may be required. The Pap Smear is a screening test designed to aid in the detection of premalignant and malignant conditions of the uterine cervix. It is not a diagnostic procedure and should not be used as the sole means of detecting cervical cancer. Both false- positive and false- negative reports do occur. Depending on your risk status, a Pap smear should be obtained and evaluated every 1-3 years. END OF REPORT * ML=Testing performed at Main Lab DEPARTMENT OF PATHOLOGY, [address] [place] [address] Handy Verma M.D. Director [facility] # [id number] 7 The high-risk HPV types detected by the assay include: 16, 18, 31, 33, 35, 39, 45, 51, 52, 56, 58, 59, 66, and 68. Procedures Date Code Description Status 10/06/2017 43921 Echography Transvaginal Completed Encounters Type Date Location Provider Dx Diagnosis Office Visit 03/07/2018 [facility] Madelyn Goodman, N76.0 Acute vaginitis 10:20a CNM Office Visit 10/06/2017 [facility] Alexander Fontanez, N92.6 Irregular 2:00p M.D. menstruation, unspecified Office Visit 08/25/2017 [facility] Alexander Fontanez, Z01.411 Encntr for community affairs manager exam 8:30a M.D. (general) (routine) w abnormal findings N92.6 Irregular menstruation, unspecified Plan of Treatment 03/07/2018 - Madelyn Goodman, CNMN76.0 Acute vaginitisComments:I will contact you with results of tests or call if you haven't heard.
[2018-10-19 10:44] VITALS: BP 104/51
--- NOTE | 2018-10-20 10:25 | ED ---
Progress - Progress Note Progress Note: Pt's vaginal cx reveals BV. She was not started on anbx as she was suspicious for early and not vaginal infection however she did have an abnormal vaginal d/c and adnexal TTP. She was advised to repeat hCG and ultrasound in 48 hours via outpatient care or to return to the emergency department for these tests. Attempted to contact patient to update her results but no answer. Left message to call. Clindamycin vaginal suppositories are safe during and effective against organism. Would offer this to patient to start either today or after testing tomorrow. Will mail letter. collections clerk aware. Course/Dx - Diagnoses Provider Diagnoses: Possible , not confirmed, LLQ abdominal pain Discharge - Sign-Out/Discharge Documenting (check all that apply): Post-Discharge Follow Up - Discharge Plan Condition: Stable Disposition: HOME Referrals: Ramses Quijano DO [Primary Care Provider] - Additional Instructions: The definitive cause of your left lower quadrant pain was not identified today however there is concern that you may have an early . This may be intrauterine and viable or may be ectopic and not viable. In an effort to follow this potential condition, it is important that you have a repeat of your test in 48 hours and possibly a repeat ultrasound. Call your PCP today for testing - If you do not have outpatient services that are able to order these tests for you, return to the emergency department for testing Monday. * If in the meantime you develop worsening of pain with vaginal bleeding, cramping, fever, chills, vomiting, contractions of your lower abdomen and pelvis , return to the emergency department. In the event that you do have a viable intrauterine , it is advised that you avoid all tobacco, alcohol and illicit drugs as well as over-the- counter drugs except for acetaminophen. You may start a vitamin and follow general guidelines for such as avoiding raw foods, harsh chemicals, etc. - Billing Disposition and Condition Condition: STABLE Disposition: Home
--- NOTE | 2018-10-20 22:13 | PN ---
Progress Note - Progress Note Date of Service: 10/20/18 Note: discussed results with patient and not have any symptoms so will not treat
== END 2018-10-19 10:43 | disposition home or self-care (01) ==
LOC: ED 05:05
DX: R10.32 Left lower quadrant pain (principal); R11.0 Nausea
CPT/HCPCS: 36415; 76830; 80053; 81003; 81015; 83605; 83690; 83735; 84702; 85025; 85610; 85730; 86140; 87086; 87480; 87491; 87510; 87591; 87661; 99284

== ENCOUNTER 2019-01-11 15:02 | Emergency (ER) | payer SELFPAY ==
[2019-01-11 15:11] VITALS: BP 147/82
[2019-01-11] MEDS ORDERED: Famotidine TAB* 20 MG PO ONE (15:31)
[2019-01-11] MEDS ORDERED: Ondansetron ODT TAB* 4 MG PO ONE (15:31)
--- NOTE | 2019-01-11 15:33 | UC ---
UC General HPI - HPI Summary HPI Summary: Patient reheated [place] food this morning, she began to get nasuea and feeling lightheaded and shakiy. the shaky has gone away but she is still nauseated. no other symtpoms - History of Current Complaint Chief Complaint: UCAllergicReaction Stated Complaint: DIZZY Time Seen by Provider: 01/11/19 15:22 Hx Obtained From: Patient Hx Last Menstrual Period: Onset/Duration: Sudden Onset, Lasting Hours Timing: Constant Onset Severity: Mild Current Severity: None Pain Intensity: 0 Associated Signs & Symptoms: Positive: Abdominal Pain, Weakness - Allergy/Home Medications Allergies/Adverse Reactions: Allergies Allergy/AdvReac Type Severity Reaction Status Date / Time Sulfa (Sulfonamide Allergy Rash Verified 01/11/19 15:11 Antibiotics) PMH/Surg Hx/FS Hx/Imm Hx Previously Healthy: Yes Other History Of: Negative For: Anticoagulant Therapy - Surgical History Surgical History: Yes Surgery Procedure, Year, and Place: T&A - Family History Known Family History: Positive: None Negative: Cardiac Disease, Hypertension, Diabetes - Social History Alcohol Use: Occasionally Substance Use Type: None Smoking Status (MU): Never Smoked Tobacco - Immunization History Most Recent Influenza Vaccination: fall 2014 Most Recent Tetanus Shot: up to date patient thinks Vaccination Up to Date: Yes Review of Systems All Other Systems Reviewed And Are Negative: Yes Constitutional: Positive: Fatigue Skin: Positive: Negative Eyes: Positive: Negative ENT: Positive: Negative Respiratory: Positive: Negative Cardiovascular: Positive: Negative Gastrointestinal: Positive: Abdominal Pain, Nausea Genitourinary: Positive: Negative Motor: Positive: Negative Neurovascular: Positive: Negative Musculoskeletal: Positive: Negative Neurological: Positive: Headache Psychological: Positive: Negative Is Patient Immunocompromised?: No Physical Exam Triage Information Reviewed: Yes Appearance: Well-Nourished, Ill-Appearing, Pain Distress Vital Signs: Initial Vital Signs Temp 97.5 F 01/11/19 15:06 Pulse 95 01/11/19 15:06 Resp 20 01/11/19 15:06 BP 147/82 01/11/19 15:06 Pulse Ox 100 01/11/19 15:06 Vital Signs Reviewed: Yes Eye Exam: Normal ENT: Positive: Pharynx normal, TMs normal Dental Exam: Normal Neck exam: Normal Respiratory Exam: Normal Respiratory: Positive: Chest non-tender, Lungs clear, Normal breath sounds Cardiovascular Exam: Normal Cardiovascular: Positive: RRR, No Murmur, Pulses Normal Abdomen Description: Positive: No Organomegaly, Soft, CVA Tenderness (R) - neg, CVA Tenderness (L) - neg, Other: - epigastric tenderness on palpation Bowel Sounds: Positive: Present Musculoskeletal Exam: Normal Neurological Exam: Normal Psychological Exam: Normal Skin Exam: Normal Course/Dx - Course Course Of Treatment: hx obtained exam performed ,meds reviewed, treated for nuasea and supsected food poisoning. - Diagnoses Provider Diagnosis: Nausea alone, Epigastric pain Discharge - Sign-Out/Discharge Documenting (check all that apply): Patient Departure All imaging exams completed and their final reports reviewed: No Studies - Discharge Plan Condition: Stable Disposition: HOME Patient Education Materials: Acute Nausea and Vomiting (ED) Forms: *Work Release Referrals: Ramses Quijano DO [Primary Care Provider] - Additional Instructions: 1. take the medication as prescribed. 2. Get rest and increase fluids as tolerated 3. Follow up if your symptoms worsen - Billing Disposition and Condition Condition: STABLE Disposition: Home
== END 2019-01-11 15:52 | disposition home or self-care (01) ==
LOC: UCEAST 15:02
DX: R11.0 Nausea (principal); R10.13 Epigastric pain
CPT/HCPCS: 99202; A9270-GY; G0463